=== PATIENT | female | born 1950 | race Caucasian/White ===

== ENCOUNTER → 2016-08-02 | Outpatient (REF) | payer BC ==
[2016-08-02 15:30] LABS: ALBUMIN 3.7 GM/DL (3.2-5.2); ALBUMIN/GLOBULIN RATIO 1.09 (1.00-1.93); ALKALINE PHOSPHATASE 96 U/L (45-117); ALT/SGPT 36 U/L (12-78); ANION GAP 6 MEQ/L (8-16); AST/SGOT 23 U/L (15-37); BILIRUBIN,TOTAL 0.6 MG/DL (0.2-1.0); BLOOD UREA NITROGEN 18 MG/DL (7-18); CALCIUM LEVEL 8.8 MG/DL (8.8-10.2); CARBON DIOXIDE LEVEL 31 MEQ/L (21-32); CHLORIDE LEVEL 106 MEQ/L (98-107); CHOLESTEROL LEVEL 194 MG/DL (<200); CREATININE FOR GFR 0.87 MG/DL (0.55-1.02); GLOMERULAR FILTRATION RATE > 60.0 (>45); GLUCOSE, FASTING 109 MG/DL (80-110); POTASSIUM SERUM 4.5 MEQ/L (3.5-5.1); SODIUM LEVEL 143 MEQ/L (136-145); TOTAL PROTEIN 7.1 GM/DL (6.4-8.2); TRIGLYCERIDES LEVEL 151 MG/DL (<150)
== END | disposition home or self-care (01) ==
LOC: M SFHCLACO 09:38
PROVIDERS: ATTEND Physician Assistant
DX: I10 Essential (primary) hypertension (principal); E78.2 Mixed hyperlipidemia; E87.6 Hypokalemia

== ENCOUNTER → 2017-04-09 | Outpatient (REF) | payer BC ==
[2017-04-09 15:44] LABS: ALBUMIN 3.7 GM/DL (3.2-5.2); ALBUMIN/GLOBULIN RATIO 1.09 (1.00-1.93); ALKALINE PHOSPHATASE 96 U/L (45-117); ALT/SGPT 46 U/L (12-78); ANION GAP 8 MEQ/L (8-16); AST/SGOT 33 U/L (15-37); BLOOD UREA NITROGEN 14 MG/DL (7-18); CALCIUM LEVEL 9.1 MG/DL (8.8-10.2); CARBON DIOXIDE LEVEL 27 MEQ/L (21-32); CHLORIDE LEVEL 106 MEQ/L (98-107); CHOLESTEROL LEVEL 187 MG/DL (<200); CREATININE FOR GFR 0.87 MG/DL (0.55-1.02); GLOMERULAR FILTRATION RATE > 60.0 (>45); GLUCOSE, FASTING 109 MG/DL (80-110); POTASSIUM SERUM 4.4 MEQ/L (3.5-5.1); SODIUM LEVEL 141 MEQ/L (136-145); TOTAL PROTEIN 7.1 GM/DL (6.4-8.2); TRIGLYCERIDES LEVEL 181 MG/DL (<150)
== END ==
LOC: M SFHCLACO 08:50
PROVIDERS: ATTEND Physician Assistant
DX: I10 Essential (primary) hypertension (principal); E78.2 Mixed hyperlipidemia

== ENCOUNTER → 2017-12-17 | Outpatient (REF) | payer BC ==
[2017-12-17 15:09] LABS: ALBUMIN 3.7 GM/DL (3.2-5.2); ALBUMIN/GLOBULIN RATIO 1.06 (1.00-1.93); ALKALINE PHOSPHATASE 100 U/L (45-117); ALT/SGPT 51 U/L (12-78); ANION GAP 9 MEQ/L (8-16); AST/SGOT 32 U/L (7-37); BILIRUBIN,TOTAL 0.8 MG/DL (0.2-1.0); BLOOD UREA NITROGEN 15 MG/DL (7-18); CALCIUM LEVEL 8.8 MG/DL (8.8-10.2); CARBON DIOXIDE LEVEL 27 MEQ/L (21-32); CHLORIDE LEVEL 108 MEQ/L (98-107); CHOLESTEROL LEVEL 165 MG/DL (<200); CREATININE FOR GFR 0.85 MG/DL (0.55-1.30); GLOMERULAR FILTRATION RATE > 60.0 (>45); GLUCOSE, FASTING 104 MG/DL (70-100); HDL CHOLESTEROL 55 MG/DL (>40); LDL CHOLESTEROL 83.4 MG/DL (<100); NON-HDL-C 110 MG/DL; POTASSIUM SERUM 4.1 MEQ/L (3.5-5.1); SODIUM LEVEL 144 MEQ/L (136-145); TOTAL PROTEIN 7.2 GM/DL (6.4-8.2); TRIGLYCERIDES LEVEL 133 MG/DL (<150)
== END ==
LOC: M SFHCLACO 08:39
DX: I10 Essential (primary) hypertension (principal); E78.2 Mixed hyperlipidemia
CPT/HCPCS: 80053

== ENCOUNTER → 2019-03-12 | Outpatient (REF) | payer BC, MEDICARE | LOC: M LAB REF 18:46 | PROVIDERS: ATTEND Physician Assistant | DX: D22.61 Melanocytic nevi of right upper limb, including shoulder (principal) ==

== ENCOUNTER → 2020-04-06 | Outpatient (REF) | payer BC, MEDICARE | LOC: M SFHCADAM 14:01 | PROVIDERS: ATTEND Physician Assistant | DX: Z90.09 Acquired absence of other part of head and neck (principal) ==

== ENCOUNTER 2021-01-08 21:39 | Emergency (ER) | payer BC, MEDICARE ==
[~2021-01-08] VITALS: Ht 160 cm; Wt 86.4 kg
[2021-01-08 21:40] VITALS: BP 119/89
[2021-01-08] MEDS ORDERED: ATOR1TAB21 PO (21:48)
[2021-01-08] MEDS ORDERED: DULO1CAP6 PO (21:48)
[2021-01-08] MEDS ORDERED: OMEP-218 PO (21:48)
[2021-01-08] MEDS ORDERED: LOSA50TA88 PO (21:48)
[2021-01-09] MEDS ORDERED: ASPI1CHW3 PO (14:11)
[2021-01-09] MEDS ORDERED: METH-1164 PO (17:35)
== END 2021-01-09 00:01 | disposition left against medical advice (07) ==
LOC: M ED 21:39
DX: Z53.21 Procedure and treatment not carried out due to patient leaving prior to being seen by health care provider (principal)

== ENCOUNTER 2021-01-09 14:01 | Emergency (ER) | payer BC, MEDICARE ==
[~2021-01-09] VITALS: Ht 160 cm; Wt 86.4 kg
[~2021-01-09 14:01] MED LIST: ATOR1TAB21 PO; DULO1CAP6 PO; LOSA50TA88 PO; OMEP-218 PO
[2021-01-09] MEDS ORDERED: ASPI1CHW3 PO (14:11)
--- NOTE | 2021-01-09 15:31 | REP ---
INDICATION: r/o dvt. COMPARISON: None. TECHNIQUE: Right {lower extremity duplex venous scanning is performed from the groin to the ankle level. FINDINGS: The deep veins are anechoic and fully compressible from the groin to the popliteal fossa in the right lower extremity. Color flow imaging is homogeneous. Spectral Doppler interrogation demonstrates intact respiratory variation in flow and normal manual augmentation of flow. There is no evidence of deep vein thrombosis above the knee. There is no evidence of DVT in the visualized calf veins. Doppler interrogation of the contralateral common femoral vein shows normal symmetric respiratory phasicity. IMPRESSION: No evidence of DVT in the right lower extremity femoropopliteal veins. No DVT in the visible portions of the calf veins. <Electronically signed by Zay Holland > 01/09/21 [id number]
[2021-01-09] MEDS ORDERED: KETOROLAC 30 MG/ML 1ML VIAL IM ONE (16:25)
[2021-01-09] MEDS ORDERED: methocarbamoL 500 MG TAB PO ONE (16:30)
--- NOTE | 2021-01-09 16:55 | REP ---
INDICATION: knee pain. COMPARISON: None. TECHNIQUE: Portably obtained AP and lateral views of the right knee. FINDINGS: AP and lateral views of the right knee demonstrate mild superior pole patellar spurring. No fracture or subluxation is seen. Joint spaces are preserved.. No evidence of joint effusion.. IMPRESSION: No fracture seen. Mild superior pole patellar spurring.. <Electronically signed by Zay Holland > 01/09/21 [id number]
[2021-01-09] MEDS ORDERED: METH-1164 PO (17:35)
[2021-01-09 18:04] VITALS: BP 116/75
== END 2021-01-09 18:11 | disposition home or self-care (01) ==
LOC: M ED 14:01
DX: M25.561 Pain in right knee (principal); M25.761 Osteophyte, right knee; I10 Essential (primary) hypertension; E78.5 Hyperlipidemia, unspecified; K21.9 Gastro-esophageal reflux disease without esophagitis; F33.9 Major depressive disorder, recurrent, unspecified; F41.8 Other specified anxiety disorders; Z79.82 Long term (current) use of aspirin; Z79.899 Other long term (current) drug therapy
CPT/HCPCS: 73560; 93971; 96372; 99283; J1885

== ENCOUNTER → 2022-03-09 | Outpatient (REF) | payer MEDICARE, BC ==
[~2022-03-09] MED LIST changes: +ASPI1CHW3 PO; +LOSA50TA28 PO; -LOSA50TA88 PO; +METH-1164 PO; +OMEP-173 PO; -OMEP-218 PO
[2022-03-09 13:59] LABS: BASO # 0.1 10^3/uL (0.0-0.2); BASO % 0.9 % (0.0-1.0); EOS # 0.1 10^3/uL (0.0-0.5); EOS % 1.3 % (0.0-3.0); HEMATOCRIT 46.3 % (36.0-47.0); HEMOGLOBIN 15.8 g/dl (12.0-15.5); LYMPH # 2.1 10^3/uL (1.5-5.0); LYMPH % 39.2 % (24.0-44.0); MEAN CORPUSCULAR HGB CONC 34.1 g/dl (32.0-36.5); MEAN CORPUSCULAR VOLUME 90.8 fl (80.0-96.0); MONO # 0.4 10^3/uL (0.0-0.8); MONO % 8.1 % (2.0-8.0); NEUTROPHILS # 2.7 10^3/uL (1.5-8.5); NEUTROPHILS % 50.3 % (36.0-66.0); PLATELET COUNT, AUTOMATED 264 10^3/uL (150-450); WHITE BLOOD COUNT 5.3 10^3/uL (4.0-10.0)
[2022-03-09 14:54] LABS: ALBUMIN 3.7 GM/DL (3.2-5.2); ALT/SGPT 36 U/L (12-78); BILIRUBIN,TOTAL 0.8 MG/DL (0.2-1.0); BLOOD UREA NITROGEN 14 MG/DL (7-18); CALCIUM LEVEL 9.2 MG/DL (8.8-10.2); CARBON DIOXIDE LEVEL 29 MEQ/L (21-32); CHLORIDE LEVEL 105 MEQ/L (98-107); CHOLESTEROL LEVEL 201 MG/DL (<200); CHOLESTEROL RISK RATIO 3.526 (<5); CREATININE FOR GFR 0.89 MG/DL (0.55-1.30); FREE T4 1.08 NG/DL (0.76-1.46); GLOMERULAR FILTRATION RATE > 60.0 (>45); GLUCOSE, FASTING 105 MG/DL (70-100); HDL CHOLESTEROL 57 MG/DL (>40); LDL CHOLESTEROL 108 MG/DL (<100); NON-HDL-C 144 MG/DL; POTASSIUM SERUM 4.2 MEQ/L (3.5-5.1); SODIUM LEVEL 139 MEQ/L (136-145); THYROID STIMULATING HORMONE 0.537 uIU/ML (0.358-3.740); TOTAL PROTEIN 7.1 GM/DL (6.4-8.2); TRIGLYCERIDES LEVEL 179 MG/DL (<150)
[2022-03-09 15:02] LABS: MALB URINE SIEMENS 19.9 MG/L; MAU/CREAT RATIO 5.3 MCG/MG (0.0-30.0)
[2022-03-09 15:22] LABS: TOTAL 25(OH) VITAMIN D 29.3 NG/ML (30.0-100.0)
== END ==
LOC: M SFHCADAM 10:40
PROVIDERS: ATTEND Physician Assistant
DX: I10 Essential (primary) hypertension (principal); E78.2 Mixed hyperlipidemia; E55.9 Vitamin D deficiency, unspecified; Z90.09 Acquired absence of other part of head and neck